=== PATIENT | male | born 1975 | race Caucasian/White ===

== ENCOUNTER 2021-12-23 09:49 | Emergency (ER) | payer OTHER, SELFPAY ==
[2021-12-23] VITALS (9 sets, daily range): BP systolic 142–155; BP diastolic 87–118; PULSE 71–82; RESP 16–18; TEMP 36.7; O2SAT 92–96; BMI 40.8
--- NOTE | 2021-12-23 10:19 | DI.US.S_ITS ---
PROCEDURE: US ABDOMEN LIMITED INDICATIONS: RUQ PAIN WORSE AFTER EATING TECHNIQUE: Real-time scanning was performed of the abdominal and retroperitoneal organs, with image documentation. COMPARISON: None. FINDINGS: This is a limited study due to patient body habitus. Liver: Liver is normal in size and homogeneous in echotexture. Gallbladder: The gallbladder wall measures 1.6 mm in diameter. No pericholecystic fluid or sonographic Hunt's sign. Nonmobile stones measuring approximately 9 mm in diameter are present in the gallbladder neck. Biliary ducts: Intrahepatic bile ducts are non-dilated. Extrahepatic bile duct caliber measures 3.9 mm. Normal is 6-7 mm or less in diameter, or 10 mm or less post-cholecystectomy. Pancreas: The pancreas is not visualized. IMPRESSION: 1. Cholelithiasis with k non mobile calculi in the gallbladder neck. No intrahepatic biliary ductal dilatation, gallbladder wall thickening, pericholecystic fluid, or sonographic Hunt sign to suggest choledocholithiasis or acute cholecystitis. Dictated by: Rosaura Mathias M.D. on 12/23/2021 at 11:33 Approved by: Rosaura Mathias M.D. on 12/23/2021 at 11:35
[2021-12-23 10:51] LABS: Add Manual Diff / Slide Review NO; Basophils Absolute Auto 100 /uL (0-100); Basophils Percent Auto 0.8 % (0-2); Eosinophils Absolute Auto 200 /uL (0-450); Eosinophils Percent Auto 2.6 % (2-4); Hematocrit 50.2 % (41-53); Hemoglobin 17.1 g/dL (13.5-17.5); Lymphocytes Absolute Auto 2700 /uL (1100-4500); Lymphocytes Percent Auto 30.3 % (25-40); Mean Corpuscular Volume 88.3 fL (80-100); Monocytes Absolute Auto 800 /uL (0-900); Neutrophils Absolute Auto 5100 /uL (1500-7000); Neutrophils Percent Auto 57.3 % (50-75); Platelet Count 216 X10^3/uL (150-400); Red Blood Cell Count 5.68 X10^6/uL (4.5-5.9); Red Cell Distribution Width 12.9 % (11.6-14.8); White Blood Cell Count 8.9 X10^3/uL (4.5-11.0)
--- NOTE | 2021-12-23 10:55 | ED.ABDPAIN ---
HPI - Abdominal Pain General Chief Complaint: Abdominal Pain Stated Complaint: Right side Abd/back pain, nausea Time Seen by Provider: 12/23/21 10:42 Source: patient Mode of arrival: Ambulatory History of Present Illness HPI narrative: Patient is a 46-year-old male history of hypertension presenting today with right upper quadrant pain. He says he noticed it multiple times yesterday. Mostly when he ate. He felt nauseous at night never vomited. It radiated around to his to his right back. No chest pain or shortness of breath. He has not had any fever or chills. He denies any prior history of gallbladder issues. Related Data Previous Rx's Medication Instructions Recorded hydrocodone 5 mg-acetaminophen 325 1 tab PO Q6H PRN #10 tab 12/23/21 mg tablet ondansetron 4 mg disintegrating 4 mg PO Q8H PRN #10 tab 12/23/21 tablet Allergies Allergy/AdvReac Type Severity Reaction Status Date / Time No Known Drug Allergies Allergy Verified 12/23/21 10:20 Review of Systems Review of Systems Narrative: GENERAL: Denies chills, fatigue, malaise, fever, sweats, travel HEENT: Denies sinus pain, ear pain, sore throat, difficulty swallowing, neck pain RESPIRATORY: Denies dyspnea, cough, wheezing, hemoptysis, sputum. CARDIOVASCULAR: Denies chest pain, palpitations, orthopnea, edema GASTROINTESTINAL: See HPI : Denies dysuria, frequency, incontinence, hematuria, urinary retention, flank pain. MUSCULOSKELETAL: Denies weakness, joint pain, or bony pain SKIN: No rash, no erythema, no pruritus NEUROLOGIC: Denies weakness, dizziness, headache, numbness, change in speech, confusion PSYCHIATRIC: No concerning psychosocial issues. 12 point review of systems is negative except for those stated above and HPI Patient History Surgical History Status post knee surgery Family History Father Age: 74 Gout, unspecified cause, unspecified chronicity, unspecified site Mother Age: 72 Essential hypertension Social History Smoking Status: Unknown if ever smoked Smoking Status: Unknown if ever smoked alcohol intake frequency: holidays/special occasions only Substance Use Type: does not use Exam Initial Vital Signs Initial Vital Signs: Vital Signs Temperature 98.0 F 12/23/21 10:10 Pulse Rate 71 12/23/21 10:10 Respiratory Rate 16 12/23/21 10:10 Blood Pressure 146/87 H 12/23/21 10:10 Pulse Oximetry 95 12/23/21 10:10 GENERAL: Alert well-appearing 46-year-old male no acute distress HEENT: Head atraumatic,EOMI, pupils reactive, face symmetric, moist mucous membranes CARDIOVASCULAR: Regular rate and rhythm without murmurs, rubs or gallops. RESPIRATORY: Breath sounds equal bilaterally, no wheezes rales or rhonchi. ABDOMEN: Soft, no right upper quadrant tenderness or Hunt sign no lower abdominal pain : No CVA tenderness EXTREMITIES: Normal range of motion, no clubbing or edema. Neurovascularly intact NEUROLOGICAL: Alert and oriented x4. SKIN: Warm, dry, no laceration, no petechiae, no rashes or lesions. Course Orders Ordered: ED Orders 12/23/21 10:19 US abdomen limited Stat 12/23/21 10:43 EKG-12 Lead Stat 12/23/21 10:45 Complete Blood Count AUTO DIFF Stat Comprehensive Metabolic Panel Stat Lipase Stat Troponin & CK Cardiac Panel Stat 12/23/21 12:40 Ictotest Urine Stat Urine Culture Stat Urine Microscopic Stat Vital Signs Vital signs: Vital Signs - 8 hr 12/23/21 11:20 12/23/21 11:21 12/23/21 11:30 Pulse Rate 75 82 77 Respiratory Rate Blood Pressure 142/109 H Pulse Oximetry 96 94 93 12/23/21 11:31 12/23/21 12:00 12/23/21 12:29 Pulse Rate 77 78 80 Respiratory Rate 18 18 Blood Pressure 155/97 H 152/118 H Pulse Oximetry 93 92 93 MDM - Abdominal Pain Lab Data Result diagrams: 12/23/21 10:45 12/23/21 10:45 Labs: Lab Results 12/23/21 12/23/21 12/23/21 Range/Units 10:45 10:45 10:45 WBC 8.9 (4.5-11.0) X10^3/uL RBC 5.68 (4.5-5.9) X10^6/uL Hgb 17.1 (13.5-17.5) g/dL Hct 50.2 (41-53) % MCV 88.3 (80-100) fL MCH 30.0 (26-34) PG MCHC 34.0 (30-36) % RDW 12.9 (11.6-14.8) % Plt Count 216 (150-400) X10^3/uL Neut % (Auto) 57.3 (50-75) % Lymph % (Auto) 30.3 (25-40) % [place] % (Auto) 9.0 (3-14) % Eos % (Auto) 2.6 (2-4) % Baso % (Auto) 0.8 (0-2) % Neut # (Auto) 5100 (0160-2415) /uL Lymph # (Auto) 2700 (3838-9478) /uL [place] # (Auto) 800 (0-900) /uL Eos # (Auto) 200 (0-450) /uL Baso # (Auto) 100 (0-100) /uL Sodium 140 (137-145) mmol/L Potassium 3.4 (3.4-5.1) mmol/L Chloride 103 (98-107) mmol/L Carbon Dioxide 29 (22-32) mmol/L BUN 12 (9-20) mg/dL Creatinine 0.83 (0.66-1.25) mg/dL Estimated GFR > 60.0 (>60) mL/min BUN/Creatinine Ratio 14.5 (6-22) Glucose 104 H (70-100) mg/dL Calcium 9.8 (8.4-10.2) mg/dL Total Bilirubin 0.9 (0.2-1.3) mg/dL AST 35 (17-59) IU/L ALT 46 (<50) IU/L Alkaline Phosphatase 55 (38-126) U/L Total Creatine Kinase 103 (55-170) U/L CK-MB (CK-2) 0.97 (<2.37) ng/mL CK-MB (CK-2) Rel Index 0.9 L (1.5-5.0) % Troponin I < 0.012 (0.01-0.034) ng/mL Total Protein 8.0 (6.3-8.2) g/dL Albumin 4.6 (3.5-5.0) g/dL Globulin 3.4 (1.7-4.1) g/dL Albumin/Globulin Ratio 1.4 (1.0-2.8) Lipase 51 (23-300) U/L Ur Bilirubin Confirm (Negative) Urine RBC (0-5/HPF) Urine WBC (0-5/HPF) Ur Squamous Epith Cells (0-5/HPF) Amorphous Sediment Urine Bacteria (None) Hyaline Casts (None) Urine Mucus (Negative) Ur Culture Indicated? 12/23/21 Range/Units 12:40 WBC (4.5-11.0) X10^3/uL RBC (4.5-5.9) X10^6/uL Hgb (13.5-17.5) g/dL Hct (41-53) % MCV (80-100) fL MCH (26-34) PG MCHC (30-36) % RDW (11.6-14.8) % Plt Count (150-400) X10^3/uL Neut % (Auto) (50-75) % Lymph % (Auto) (25-40) % [place] % (Auto) (3-14) % Eos % (Auto) (2-4) % Baso % (Auto) (0-2) % Neut # (Auto) (4991-1047) /uL Lymph # (Auto) (1423-9939) /uL [place] # (Auto) (0-900) /uL Eos # (Auto) (0-450) /uL Baso # (Auto) (0-100) /uL Sodium (137-145) mmol/L Potassium (3.4-5.1) mmol/L Chloride (98-107) mmol/L Carbon Dioxide (22-32) mmol/L BUN (9-20) mg/dL Creatinine (0.66-1.25) mg/dL Estimated GFR (>60) mL/min BUN/Creatinine Ratio (6-22) Glucose (70-100) mg/dL Calcium (8.4-10.2) mg/dL Total Bilirubin (0.2-1.3) mg/dL AST (17-59) IU/L ALT (<50) IU/L Alkaline Phosphatase (38-126) U/L Total Creatine Kinase (55-170) U/L CK-MB (CK-2) (<2.37) ng/mL CK-MB (CK-2) Rel Index (1.5-5.0) % Troponin I (0.01-0.034) ng/mL Total Protein (6.3-8.2) g/dL Albumin (3.5-5.0) g/dL Globulin (1.7-4.1) g/dL Albumin/Globulin Ratio (1.0-2.8) Lipase (23-300) U/L Ur Bilirubin Confirm Negative (Negative) Urine RBC None seen (0-5/HPF) Urine WBC 1-5/hpf (0-5/HPF) Ur Squamous Epith Cells 1-5 /hpf (0-5/HPF) Amorphous Sediment 1+ Urine Bacteria Few (2-10) H (None) Hyaline Casts 1-5/lpf (None) Urine Mucus 2+ H (Negative) Ur Culture Indicated? Culture not indicate Point of care testing: Urine Dip Bedside Urine Glucose Negative Bedside Urine Bilirubin ++ 2 Bedside Urine Ketone +/- 5 Urine Specific Foster 1.025 Bedside Urine Occult Blood - Negative Bedside Urine pH 6 Bedside Urine Protein + 30 Bedside Urine Urobilinogen - Negative Bedside Urine Nitrite - Negative Bedside Urine Leukocytes +/- 15 Esterase Imaging Data US - abdomen: Radiologist's Impression: PROCEDURE:? US ABDOMEN LIMITED ? INDICATIONS:? RUQ PAIN WORSE AFTER EATING ? TECHNIQUE:? Real-time scanning was performed of the abdominal and retroperitoneal organs, with image documentation.? ? COMPARISON:? None. ? FINDINGS:? This is a limited study due to patient body habitus. ? Liver:? Liver is normal in size and homogeneous in echotexture.? ? Gallbladder:? The gallbladder wall measures 1.6 mm in diameter.? No pericholecystic fluid or sonographic Hunt's sign.? Nonmobile stones measuring approximately 9 mm in diameter are present in the gallbladder neck. ? Biliary ducts:? Intrahepatic bile ducts are non-dilated.? Extrahepatic bile duct caliber measures 3.9 mm.? Normal is 6-7 mm or less in diameter, or 10 mm or less post-cholecystectomy.? ? Pancreas:? The pancreas is not visualized. ? IMPRESSION:? ? 1. Cholelithiasis with k non mobile calculi in the gallbladder neck.? No intrahepatic biliary ductal dilatation, gallbladder wall thickening, pericholecystic fluid, or sonographic Hunt sign to suggest choledocholithiasis or acute cholecystitis. ? ? Dictated by: Rosaura Mathias M.D. on 12/23/2021 at 11:33 ? ? ECG Data Interpretation: Normal sinus rhythm rate 75 SC interval 180 QRS [address] changes no T-wave inversion no priors MDM Narrative Medical decision making narrative: Presenting with right upper quadrant pain worse with food. He is found have a nonmobile gallstone in neck of gallbladder. Blood work is overall reassuring. No signs of acute cholecystitis. He has been pain-free since the knee. At this time recommend outpatient follow-up with probable elective surgery urgently rather than emergently. Dr. Chung has been made aware and agrees with outpatient follow-up. Discharge Plan Departure Patient Disposition: Home Clinical Impression: Cholecystolithiasis Instructions: DI for Gallstones, Cholecystectomy -- Laparoscopic Surgery Activity Restrictions/Additional Instructions: *You have been diagnosed with gallstones *What to do: You will need to have her gallbladder removed. This can become complicated currently it is not. Please call surgery office today to schedule follow-up appointment. If you should have any fever or worsening pain persistent vomiting or any worsening symptoms please return to emergency department immediately *Continue to take medications as directed [place] 1 tablet every 6 hours if needed for severe pain Zofran 4 mg every 8 hours if needed for nausea or vomiting *Follow up with your primary care provider in 2-3 days or call [phone] Chung office today to schedule follow-up appointment *Return to ER if you should have increasing pain persistent vomiting, fever or any new, worsening or concerning symptoms CONTROLLED SUBSTANCE DISCHARGE (Narcotoic/benzodiazepine/Flexeril/Phenergan) 1. You have been prescribed narcotic medications, it does have acetaminophen/Tylenol/paracetamol in it, DO NOT TAKE MORE THAN 4,00mg in 24 hours of Tylenol. TRAMADOL DOES NOT CONTAIN TYLENOL 2. Please understand that we cannot provide further refills of narcotics, benzodiazepines or controlled substances through the ED and her pain management will need to be through your provider. 3. While on these medications you cannot drive or operate heavy machinery. 4. You cannot sign legal documents or perform any duties such as this. 5. As long as you're taking opiate pain medications he should also be taking a stool softener such as Colace, Dulcolax, MiraLAX or prune juice, to help avoid constipation. Prescriptions: New hydrocodone-acetaminophen 5-325 mg tablet 1 tab PO Q6H PRN (Reason: pain) Qty: 10 0RF ondansetron 4 mg tablet,disintegrating 4 mg PO Q8H PRN (Reason: nausea and vomiting) Qty: 10 0RF Referrals: Manny Chung MD [Physician] - Magda Kong MD [Primary Care Provider] -
[2021-12-23 11:03] LABS: Alanine Aminotransferase 46 IU/L (<50); Albumin 4.6 g/dL (3.5-5.0); Albumin Globulin Ratio 1.4 (1.0-2.8); Alkaline Phosphatase 55 U/L (38-126); Aspartate Aminotransferase 35 IU/L (17-59); BUN Creatinine Ratio 14.5 (6-22); Bilirubin Total 0.9 mg/dL (0.2-1.3); Blood Urea Nitrogen 12 mg/dL (9-20); Calcium 9.8 mg/dL (8.4-10.2); Carbon Dioxide 29 mmol/L (22-32); Chloride 103 mmol/L (98-107); Estimated Glomerular Filt Rate > 60.0 mL/min (>60); Globulin 3.4 g/dL (1.7-4.1); Glucose 104 mg/dL (70-100); HEMOLYSIS 15 (0-50); Lipase 51 U/L (23-300); Potassium 3.4 mmol/L (3.4-5.1); Sodium 140 mmol/L (137-145)
[2021-12-23 11:13] LABS: Creatine Kinase 103 U/L (55-170)
[2021-12-23 11:27] LABS: Troponin I < 0.012 ng/mL (0.01-0.034)
[2021-12-23 11:29] LABS: CKMB % Relative Index 0.9 % (1.5-5.0); Creatine Kinase MB 0.97 ng/mL (<2.37)
[2021-12-23 13:09] LABS: Amorphous Sediment Urine 1+; Bacteria Urine Few (2-10); Hyaline Casts Urine 1-5/LPF; Ictotest Urine Negative (Negative); Mucus Urine 2+ (Negative); RBC Urine None Seen (0-5/HPF); Squamous Epithelial Cell Urine 1-5 /HPF (0-5/HPF); WBC Urine 1-5/HPF (0-5/HPF)
== END 2021-12-23 13:20 | disposition home or self-care (01) ==
PROVIDERS: Emergency Provider Emergency Medicine; Family Provider Internal Medicine; PCP Family Medicine
DX: K80.20 Calculus of gallbladder without cholecystitis without obstruction (principal); I10 Essential (primary) hypertension
CPT/HCPCS: 36415; 76705; 80053; 81003; 81015; 82550; 82553; 83690; 84484; 85025; 87086; 93005; 93010; 99283; 99284

== ENCOUNTER → 2022-01-05 09:04 | Outpatient (CLI) | payer OTHER, SELFPAY ==
[2022-01-05 10:54] LABS: COVID19 -Nasal RAPID Negative (Negative)
== END ==
PROVIDERS: Family Provider Internal Medicine; PCP Family Medicine; Visit Provider Surgery
DX: Z01.812 Encounter for preprocedural laboratory examination (principal); Z20.822 Contact with and (suspected) exposure to COVID-19
CPT/HCPCS: 87635; C9803

== ENCOUNTER 2022-01-06 09:10 | Day surgery (SDC) | payer OTHER, SELFPAY ==
[2022-01-04 12:17] VITALS: BMI 42.0
[2022-01-06] VITALS (11 sets, daily range): BP systolic 138–170; BP diastolic 96–110; PULSE 65–80; RESP 8–16; TEMP 36–36.6; O2SAT 92–97; BMI 42.0
--- NOTE | 2022-01-06 | PATH_ITS ---
[facility] Accession Number: [id number] . 01 Material submitted: . gallbladder - GALLBLADDER . 02 Diagnosis: Gallbladder, Cholecystectomy: Chronic cholecystitis, cholesterolosis, and cholelithiasis. Stones present within cystic duct neck at gross examination. MRV 01/12/2022 1414 Local . 02 Electronically signed: . Mariola Cordero MD, Pathologist NPI- [id number] . 01 Gross description: . Received in one part. . Received in formalin, labeled Angelina Sandeep and designated gallbladder, is a 7.5 x 3.0 x 2.5 cm disrupted and collapsed gallbladder. The cystic duct margin is inked black. The serosa is purple-buchanan with a moderate amount of attached fat and a 2.0 cm defect in the mid portion. The wall thickness is 0.2-0.3 cm thick. The mucosa is green, velvety, and bile-stained with no lesions identified. Within the lumen are two, 0.8 cm, round, yellow, bosselated choleliths lodged within the cystic neck. No additional lesions are identified. Claims Support Specialist sections including inked cystic duct margin en face are submitted in cassette A1. (SOBEIDA:[id number]) /FRR 01/09/2022 1744 Local . 02 Pathologist provided ICD-10: K81.1 . 02 CPT . 076404 Specimen Comment: A courtesy copy of this report has been sent to [phone] Performed at: 01 [facility] [address] [facility], [place], [place] [id number] MD Kurt Rand MD Phone: [phone] Performed at: 02 [facility] [address] [place] [id number] MD Bethany Leroy MD Phone: [phone]
--- NOTE | 2022-01-06 09:55 | PM.PREOP ---
Pre-operative Note Interval Note History & Physical reviewed/Exam performed by Physician: Yes Changes to H&P: No
--- NOTE | 2022-01-06 10:00 | P.OP_ITS ---
Operative Date/Time/Diagnoses Date of procedure: 01/06/22 Time of procedure: 10:00 Pre-op diagnosis: biliary colic Post-op diagnosis: same Procedure & Clinicians Procedure: laparoscopic cholecystectomy Same procedure as scheduled: Yes Indications: biliary colic, gallstones on abdominal ultrasound Surgeon: Manny Cancion Yes if Unassisted: No Anesthesia Type: General Operative Notes Findings: Chronic cholecystitis. Critical view of safety established Specimen(s): other (gallbladder) Estimated Blood Loss (mL): 20 Procedure in detail: The patient was placed supine on the table and bilateral lower extremity compression devices were applied. Anesthesia was induced they were intubated with an endotracheal tube and received 2g of Ancef. A time-out was performed. They were prepped and draped in sterile fashion. An infraumbilical incision was made, the umbilical stalk was elevated and the fascia was sharply incised entering the abdomen atraumatically. A blunt tip 12mm balloon trocar was then inserted, pneumoperitoneum was established and inspection of the abdomen demonstrated no evidence of injury. They were placed head up and right side up and then a 11 mm port was placed high in the epigastrium and two 5mm in the right upper quadrant. Gallbladder was notable for moderate adhesions between it and the omentum which were taken down with careful cautery. The gallbladder was grasped by the fundus and retracted over the liver and retracted laterally by the infundibulum. Using electrocautery the lateral plane between the gallbladder and the liver was opened towards the fundus. The gallbladder was then retracted laterally and the medial plane was developed in the same manner. With the gallbladder mobilized the bottom of the cystic plate was visualized. The hepatocystic triangle was meticulosly skeletonized of all fat and fibrous tissue from both the front and the back. Only two structures were then clearly seen entering the gallbladder the cystic duct and the cystic artery. With the critical view of safety fully established the cystic duct was clipped twice pr oximally and once distally using the 10 mm clip applied under direct visualization and then sharply divided. The cystic artery was divided in the same fashion. The gallbladder was removed from the liver bed using electro cautery. The liver bed was then inspected for hemostasis and this was achieved. The abdomen was irrigated with sterile saline and inspection was made that showed the clips in good position. The specimen was removed using Endo-Catch. The abdomen was desufflated. The umbilical fascia was closed with 0 Vicryl in a [id number] fashion under direct visualization. Skin incisions were irrigated and closed with 4-0 Monocryl. 30 ml of 0.25% bupivacaine was infiltrated into the subcutaneous tissue of the incisions. The wounds were sealed with Dermabond. Patient emerged from anesthesia was extubated and transferred to recovery in stable condition. The sponge and instrument count at the end of the operation was correct. Complications: none Post-operative Condition: stable Disposition: same day surgery
--- NOTE | 2022-01-06 10:02 | SUR.OPER ---
Supine on padded OR bed, head on pillow, safety belt at thigh, left arm padded and tucked at side. Right arm secured on padded arm board <90 degrees abduction. Legs uncrossed. Padded footboard in place. Tape over blanket to secure lower legs.
[2022-01-06] MEDS: CEFAZOLIN 2 GM/20 ML SYRINGE IV (10:20)
[2022-01-06] MEDS: CEFAZOLIN 1 GM VIAL IV (10:22)
[2022-01-06] MEDS: BUPIVACAINE 0.25% (PF) VIAL 30 ML INJ (10:47)
[2022-01-06] MEDS: OXYCODONE/ACETAMINOPHEN 5/325 TABLET 1 TAB PO (12:34)
[2022-01-06] MEDS: LACTATED RINGERS 1,000 ML 100 ML IV (13:13)
== END 2022-01-06 13:10 | disposition home or self-care (01) ==
PROVIDERS: Family Provider Internal Medicine; PCP Family Medicine; Referring Provider Surgery; Visit Provider Surgery
PROC: 0FT44ZZ Resection of Gallbladder, Percutaneous Endoscopic Approach (ICD-10-PCS; CPT 47562; principal; 2022-01-06 10:45)
DX: K80.10 Calculus of gallbladder with chronic cholecystitis without obstruction (principal); G47.33 Obstructive sleep apnea (adult) (pediatric); I10 Essential (primary) hypertension
CPT/HCPCS: 47562; 82962; J0690; J1100; J1885; J2250; J2405; J2704; J3010

== ENCOUNTER → 2023-07-26 15:45 | Outpatient (CLI) | payer OTHER, SELFPAY ==
--- NOTE | 2023-07-26 15:47 | DI.RAD.S_ITS ---
PROCEDURE: XR SHOULDER RT MIN 2V INDICATIONS: AC pain, worsening TECHNIQUE: 3 views of the shoulder were acquired. COMPARISON: None. FINDINGS: Bones: No fractures or dislocations. Hypertrophic degenerative spurring at the AC joint, particularly at the distal clavicle. No suspicious bony lesions. Visualized ribs appear intact. Soft tissues: No suspicious soft tissue calcifications. IMPRESSION: Mild AC joint degeneration. Dictated by: Breanna Cleary M.D. on 07/27/2023 at 12:23 Approved by: Breanna Cleary M.D. on 07/27/2023 at 12:24
== END ==
PROVIDERS: Family Provider Internal Medicine; PCP Family Medicine; Referring Provider Family Medicine; Visit Provider Family Medicine
DX: M25.511 Pain in right shoulder (principal); G89.29 Other chronic pain
CPT/HCPCS: 73030

== ENCOUNTER → 2023-08-13 09:25 | Outpatient (CLI) | payer OTHER, SELFPAY ==
[2023-08-13 11:44] LABS: Alanine Aminotransferase 45 IU/L (<50); Albumin 4.3 g/dL (3.5-5.0); Albumin Globulin Ratio 1.3 (1.0-2.8); Alkaline Phosphatase 61 U/L (38-126); Aspartate Aminotransferase 32 IU/L (17-59); BUN Creatinine Ratio 13.3 (6-22); Bilirubin Total 0.8 mg/dL (0.2-1.3); Blood Urea Nitrogen 11 mg/dL (9-20); Calcium 9.3 mg/dL (8.4-10.2); Carbon Dioxide 28 mmol/L (22-32); Chloride 103 mmol/L (98-107); Cholesterol 170 mg/dL (140-199); Estimated Glomerular Filt Rate > 60 mL/min (>60); Globulin 3.2 g/dL (1.7-4.1); Glucose 94 mg/dL (70-100); HDL Cholesterol 38 mg/dL (40-60); HEMOLYSIS < 15 (0-50); LDL Cholesterol Calculated 111 mg/dL (<100); Potassium 3.7 mmol/L (3.4-5.1); Sodium 139 mmol/L (137-145); Total Protein 7.5 g/dL (6.3-8.2); Triglycerides 107 mg/dL (35-150)
[2023-08-15 17:18] LABS: Microalbumin Urine Random 5.3 mg/dL (0-1.6)
[2023-08-15 17:26] LABS: Creatinine Urine Random 530.5 mg/dL; Microalbumi Creatinin Ratio Ur 9.9 ug/mg CR (<30)
== END ==
PROVIDERS: Family Provider Internal Medicine; PCP Family Medicine; Referring Provider Family Medicine; Visit Provider Family Medicine
DX: I10 Essential (primary) hypertension (principal); Z68.41 Body mass index [BMI] 40.0-44.9, adult
CPT/HCPCS: 36415; 80053; 80061; 82043; 82570

== ENCOUNTER → 2025-01-22 08:14 | Outpatient (CLI) | payer OTHER, SELFPAY ==
[2025-01-22 08:59] LABS: Hemoglobin A1C% w Est Avg Glu 5.2 % (4.0-6.0)
[2025-01-22 09:09] LABS: Alanine Aminotransferase 72 IU/L (<50); Albumin 4.6 g/dL (3.5-5.0); Albumin Globulin Ratio 1.5 (1.0-2.8); Alkaline Phosphatase 70 U/L (38-126); Aspartate Aminotransferase 46 IU/L (17-59); Bilirubin Total 1.1 mg/dL (0.2-1.3); Blood Urea Nitrogen 16 mg/dL (9-20); Calcium 9.8 mg/dL (8.4-10.2); Carbon Dioxide 28 mmol/L (22-32); Chloride 104 mmol/L (98-107); Estimated Glomerular Filt Rate > 60 mL/min (>60); Globulin 3.1 g/dL (1.7-4.1); Glucose 105 mg/dL (70-100); HEMOLYSIS 29 (0-50); Sodium 140 mmol/L (137-145); Total Protein 7.7 g/dL (6.3-8.2)
[2025-01-22 09:37] LABS: Prostate Specific Antigen Scrn 0.606 ng/mL (0.1-4.0)
[2025-01-22 10:04] LABS: Creatinine Urine Random 255.37 mg/dL
[2025-01-22 10:10] LABS: Microalbumin Urine Random 2.5 mg/dL (0-1.6)
== END ==
LOC: LAB 08:15
PROVIDERS: Family Provider Internal Medicine; PCP Family Medicine; Referring Provider Family Medicine; Visit Provider Family Medicine
DX: I10 Essential (primary) hypertension (principal); R73.01 Impaired fasting glucose; E66.01 Morbid (severe) obesity due to excess calories; Z12.5 Encounter for screening for malignant neoplasm of prostate
CPT/HCPCS: 36415; 80053; 82043; 82570; 83036; G0103

== ENCOUNTER → 2025-07-30 15:01 | Outpatient (CLI) | payer OTHER, SELFPAY ==
--- NOTE | 2025-07-30 15:02 | DI.MRI.S_ITS ---
PROCEDURE: MR ANKLE RT WO CON INDICATIONS: right ankle/achilles pain TECHNIQUE: Noncontrast sagittal T1 spin echo and T2 fast spin echo with fat saturation, axial proton density fast spin echo and T2 fast spin echo with fat saturation, coronal T1 spin echo and T2 fast spin echo with fat saturation through the ankle/hindfoot. COMPARISON: None. FINDINGS: Image quality: Excellent Tendons: The flexor, extensor tendons are unremarkable. Full-thickness longitudinal split tear of the peroneal brevis, at the level of the lateral malleolus. The peroneal longus is unremarkable. Severe tendinosis of the distal Achilles tendon, with low-grade, partial width interstitial tear at the mid segment. Ligaments: The anterior and posterior tibiofibular ligaments are intact. Partial-thickness tear of the anterior talofibular ligament at the fibular insertion. The posterior talofibular ligament is intact. The calcaneofibular ligament is unremarkable. The deep portion deltoid ligament is unremarkable. Sinus tarsi: No fibrosis Plantar fascia: Mild thickening of the central cord with intermediate signal, raising concern for plantar fasciitis. Muscles: Normal in signal Bones: Normal in signal. No acute fracture. Mild subchondral cystic changes at the anterior process of the calcaneus, nonspecific and may be degenerative. Diffuse subcutaneous edema of the ankle. No significant effusion. IMPRESSION: 1. Full-thickness longitudinal split tear of the peroneal brevis. 2. Severe tendinosis distal Achilles tendon with low-grade, partial width tear. 3. Partial thickness tear of the anterior talofibular ligament. 4. Mild plantar fasciitis. 5. Subcutaneous edema of the ankle. Dictated by: Marlene Valles M.D. on 07/30/2025 at 16:14 Approved by: Marlene Valles M.D. on 07/30/2025 at 16:29
== END ==
LOC: MRI 15:02
PROVIDERS: Family Provider Internal Medicine; PCP Family Medicine; Referring Provider Physician Assistant Surgical; Visit Provider Physician Assistant Surgical
DX: S86.311A Strain of muscle(s) and tendon(s) of peroneal muscle group at lower leg level, right leg, initial encounter (principal); S93.491A Sprain of other ligament of right ankle, initial encounter; S86.011A Strain of right Achilles tendon, initial encounter; M72.2 Plantar fascial fibromatosis; R60.0 Localized edema; M25.571 Pain in right ankle and joints of right foot
CPT/HCPCS: 73721